=== PATIENT | female | born 1990 | race Caucasian/White ===

== ENCOUNTER 2017-04-16 10:25 | Emergency (ER) | payer OTHER ==
[~2017-04-16] VITALS: Ht 165.1 cm; Wt 52.4 kg
[~2017-04-16 10:25] MED LIST: CHOL5000 PO; LACT1CAP35 PO; NORE-137 PO; PROG200C15 PO
[2017-04-16] MEDS ORDERED: ONDANSETRON 2MG/ML, 2ML IVPush ONE (11:30)
[2017-04-16] MEDS ORDERED: SODIUM CHLORIDE 0.9% 1,000ML IVBOLUS ONE (11:30)
[2017-04-16] MEDS ORDERED: SODIUM CHLORIDE FLUSH 10ML SYR IVF ONE (11:30)
[2017-04-16] MEDS ORDERED: ONDANSETRON 2MG/ML, 2ML ONE (11:39)
[2017-04-16 12:25] LABS: HEMATOCRIT 39.2 % (34.6-47.8); HEMOGLOBIN 13.6 g/dL (11.7-16.4); WHITE BLOOD COUNT 13.3 x10^3/uL (3.4-10)
[2017-04-16 12:31] LABS: BLOOD UREA NITROGEN 13 mg/dL (7-18)
[2017-04-16 12:41] LABS: ASPARTATE AMINO TRANSFERASE 19 U/L (15-37)
[2017-04-16 14:04] VITALS: BP 106/50
== END 2017-04-16 14:38 | disposition home or self-care (01) ==
LOC: ED 13:56
DX: O23.12 Infections of bladder in pregnancy, second trimester (principal); O26.892 Other specified pregnancy related conditions, second trimester; O21.9 Vomiting of pregnancy, unspecified; R11.0 Nausea; Z3A.14 14 weeks gestation of pregnancy
CPT/HCPCS: 36415; 76805; 80053; 81001; 83690; 84702; 85025; 87086; 96374; 99285; J2405; J7030